=== PATIENT | female | born 1950 ===

== ENCOUNTER 2017-10-17 07:43 | Day surgery (SDC) | payer MEDICARE ==
[2017-10-17] MEDS ORDERED: Lactated Ringer's 1,000 ML IV ONE (08:54)
[2017-10-17] MEDS ORDERED: Midazolam 2 MG/2 ML VIAL ONE (10:05)
[2017-10-17] MEDS ORDERED: Propofol 10 mg/ml Inj (20 ML) ONE (10:05)
[2017-10-17 11:21] VITALS: RESP 16; TEMP 97; O2SAT 99
[2017-10-17 11:22] VITALS: BP 115/59; PULSE 52
== END 2017-10-17 11:47 | disposition home or self-care (01) ==
LOC: H.ENDO 07:43
PROVIDERS: ATTEND Internal Medicine Gastroenterology
DX: K57.30 Diverticulosis of large intestine without perforation or abscess without bleeding (principal); R19.5 Other fecal abnormalities; K64.8 Other hemorrhoids
CPT/HCPCS: 45378; J2250; J2704; J7120